=== PATIENT | male | born 1995 | race Caucasian/White ===

== ENCOUNTER 2024-09-16 03:26 | Emergency (ER) | payer SELFPAY ==
[~2024-09-16] VITALS: Ht 180.3 cm; Wt 88.0 kg
[2024-09-16] MEDS ORDERED: CEPH500 PO (05:23)
[2024-09-16 05:30] VITALS: BP 125/78
== END 2024-09-16 05:30 | disposition home or self-care (01) ==
LOC: ER 03:26
DX: L25.9 Unspecified contact dermatitis, unspecified cause (principal); L03.114 Cellulitis of left upper limb
CPT/HCPCS: 99283